=== PATIENT | female | born 1950 | race Caucasian/White ===

== ENCOUNTER 2022-06-12 18:32 | Emergency (ER) | payer MEDICARE ==
[2022-06-12] MEDS ORDERED: ONDANSETRON 4 MG/2 ML INJ IV ONE (19:05)
[2022-06-12] MEDS ORDERED: MORPHINE 4 MG/1 ML INJ IV ONE (19:05)
--- NOTE | 2022-06-12 19:05 | Emergency Department Report ---
ED General Adult HPI - General Chief complaint: Pain General Stated complaint: Leave me alone Time Seen by Provider: 06/12/22 18:51 Source: patient, EMS (Verbal report received from emergency medical services. EMS documentation not available at time of chart dictation ), RN notes reviewed Mode of arrival: Stretcher Limitations: Altered Mental Status, Physical Limitation - History of Present Illness Initial comments: The patient was evaluated in the emergency department for symptoms described in the history of present illness. He/she was evaluated in the context of the global COVID-19 pandemic, which necessitated consideration that the patient mi ght be at risk for infection with the virus that causes COVID-19. Institutional protocols and algorithms that pertain to the evaluation of patients at risk for COVID-19 are in a state of rapid change based on information released by regulatory bodies including the CDC and federal and state organizations. These policies and algorithms were followed during the patient's care in the emergency department. Please note that these policies, procedures and recommendations changed on a rapid basis. This is a 71-year-old female. Her primary care doctor is Dr. Becerra. Past medical history includes hypertension, dementia, and high cholesterol. She may also have underlying psychiatric disease. The patient presents to the department today with emergency medical services. The patient is awake, but chronically confused, demented and a poor historian. History obtained entirely from EMS. As per EMS, they were contacted by the patient's halfway or personal mcc, because of a concern that the patient might be having left leg pain. It is unknown if there is any trauma. The patient herself does grimace when her left leg is touched at the left proximal femur and humerus. The patient states leave me alone. The patient otherwise is not able to describe the qualitative nature of symptoms, exacerbating factors relieving factors or aggravating factors. The patient is not currently accompanied by friends or family at this time for collateral information or additional information. No additional history is available at this time. EMS reports unremarkable vital signs in the field, the patient is moving 4 extremities, although, they report that the left lower extremity appears to be shortened and externally rotated. They do report that the patient was found in a bed. Called up phone number ) for [facility], nobody answered the phone. Left voicemail for call back [place] [facility] -: unknown Location: left, lower extremity - Related Data Allergies Allergy/AdvReac Type Severity Reaction Status Date / Time No Known Allergies Allergy Verified 06/12/22 18:39 ED Review of Systems ROS: Stated complaint: L KNEE PAIN Other details as noted in HPI Comment: Unobtainable due to pts medical conditions Musculoskeletal: as per HPI Neurological: confusion ED Physical Exam - General Limitations: Altered Mental Status, Other (Dementia, agitation and poor historian) General appearance: alert, anxious - Head Head exam: Present: atraumatic, normocephalic - Eye Eye exam: Present: normal appearance, EOMI - ENT ENT exam: Present: normal orophraynx, mucous membranes dry, normal external ear exam - Neck Neck exam: Present: normal inspection, full ROM. Absent: tenderness, meningismus - Respiratory Respiratory exam: Present: rhonchi. Absent: respiratory distress, wheezes, rales, stridor, decreased breath sounds - Cardiovascular Cardiovascular Exam: Present: regular rate, normal rhythm, normal heart sounds. Absent: bradycardia, tachycardia, irregular rhythm, systolic murmur, diastolic murmur, rubs, gallop - GI/Abdominal GI/Abdominal exam: Present: soft. Absent: distended, tenderness, guarding, rebound, rigid, pulsatile mass - Rectal Rectal exam: Present: normal inspection, other (Chaperoned by nurse Ramos) - External exam: Present: normal external exam, other (Chaperoned by nurse Rachel Hardy) - Extremities Exam Extremities exam: Present: full ROM (Bilateral upper extremities. Right lower extremity), tenderness (Point tenderness to the left proximal humerus and femur), other (2+ pulses noted in the bilateral upper and lower extremities. The upper extremities are nontender. The right lower extremity is nontender. The left hip and femur are tender proximally. Bilateral knees and ankles are nontender). Absent: normal inspection, calf tenderness - Back Exam Back exam: Present: normal inspection. Absent: tenderness, CVA tenderness (R), CVA tenderness (L), paraspinal tenderness, vertebral tenderness - Neurological Exam Neurological exam: Present: altered (The patient is awake. The patient moves 4 extremities. The patient is asking to be left alone. The patient is confused and demented. There is no obvious facial droop. The tongue is midline.), other (Sensation is intact to light touch in 4 extremities.) - Psychiatric Psychiatric exam: Present: anxious - Skin Skin exam: Present: warm, dry, intact, normal color. Absent: rash ED Course Vital Signs 06/12/22 06/12/22 06/12/22 18:33 19:10 20:20 Temperature 99.0 F Pulse Rate 80 86 84 Respiratory 18 18 18 Rate Blood Pressure 136/68 95/68 135/76 [Left] O2 Sat by Pulse 98 96 96 Oximetry 06/12/22 06/13/22 23:37 01:30 Temperature 97.0 F L Pulse Rate 80 88 Respiratory 16 15 Rate Blood Pressure 147/58 115/72 [Left] O2 Sat by Pulse 95 97 Oximetry - Reevaluation(s) Reevaluation #1: 06/12/22 19:17 Differential diagnosis, including not limited to: Fracture, dislocation Assessment and plan: 71-year-old female with left leg tenderness, indication of pain, leg appears to be shortened and rotated. Very suspicious for fracture/dislocation. Low-grade temperature. Obtain appropriate laboratory studies and x-ray. Given concern for fracture and/or dislocation, be uncertain mechanism, obtain CT scan brain, cervical spine, and pelvis. Administer pain medication, head of bed elevation, n.p.o., aspiration precau tions. Reassess. Reevaluation #2: 06/12/22 19:51 called up daughter harshil edgar; no answer, left voicemail for call back. Phone #[phone] 06/12/22 20:18 No callback from [place]. Daughter Hanna Edgar has called back. We do not know how the patient broke her leg. Her daughter indicates that the patient is typically ambulatory. We do not have orthopedics on-call for the emergency room for the hospital. Given that patient is ambulatory with a proximal left-sided femoral fracture, have recommended transfer to a facility with orthopedics available for consultation and intervention. Daughter articulates understanding, and is in agreement with this recommendation. 06/12/22 20:26 History, physical, imaging studies are presented to trauma surgeon at [place], Dr. Magallanes. This patient has an emergent traumatic condition which cannot be definitively managed at this hospital, as we do not have trauma surgery orthopedics available for consultation/intervention. Patient hemodynamically stable, protecting airway, and suitable for definitive transfer at this time He will accept the patient as an ER to ER transfer. Daughter is updated She articulates understanding, and is agreeable to this plan of care Of note, [facility]eta Torrez has called back. They indicated that the patient is ambulatory yesterday. They further indicates that the patient was found to have left leg pain today, but it is uncertain how she sustained the fracture. 06/12/22 20:30 ED Medical Decision Making - Lab Data Result diagrams: 06/12/22 20:27 06/12/22 20:27 Vital Signs 06/12/22 18:33 Pulse Rate 80 Respiratory 18 Rate Blood Pressure 136/68 [Left] O2 Sat by Pulse 98 Oximetry Rectal temperature 99 degrees Lab Results 06/12/22 06/12/22 06/12/22 Range/Units 20:27 20:27 20:27 WBC 13.3 H (4.5-11.0) K/mm3 RBC 4.67 (3.65-5.03) M/mm3 Hgb 13.8 (10.1-14.3) gm/dl Hct 42.7 (30.3-42.9) % MCV 92 (79-97) fl MCH 30 (28-32) pg MCHC 32 (30-34) % RDW 13.2 (13.2-15.2) % Plt Count 208 (140-440) K/mm3 PT 16.0 H (12.2-14.9) Sec. INR 1.15 H (0.87-1.13) Sodium 137 (137-145) mmol/L Potassium 4.3 (3.6-5.0) mmol/L Chloride 100.4 (98-107) mmol/L Carbon Dioxide 23 (22-30) mmol/L Anion Gap 18 mmol/L BUN 14 (7-17) mg/dL Creatinine 0.9 (0.6-1.2) mg/dL Estimated GFR > 60 ml/min BUN/Creatinine Ratio 16 % Glucose 275 H (65-100) mg/dL Calcium 9.3 (8.4-10.2) mg/dL Magnesium 1.80 (1.7-2.3) mg/dL Total Bilirubin 0.50 (0.1-1.2) mg/dL AST 18 (5-40) units/L ALT 12 (7-56) units/L Alkaline Phosphatase 88 (35-129) units/L Total Creatine Kinase 86 (30-135) units/L Troponin T < 0.010 (0.00-0.029) ng/mL Total Protein 7.4 (6.3-8.2) g/dL Albumin 4.0 (3.9-5) g/dL Albumin/Globulin Ratio 1.2 % Urine Color (Yellow) Urine Turbidity (Clear) Urine pH (5.0-7.0) Ur Specific [place] (1.003-1.030) Urine Protein (Negative) mg/dL Urine Glucose (UA) (Negative) mg/dL Urine Ketones (Negative) mg/dL Urine Blood (Negative) Urine Nitrite (Negative) Ur Reducing Substances Urine Bilirubin (Negative) Urine Ictotest Urine Urobilinogen (<2.0) mg/dL Ur Leukocyte Esterase (Negative) Urine WBC (Auto) (0.0-6.0) /HPF Urine RBC (Auto) (0.0-6.0) /HPF U Epithel Cells (Auto) (0-13.0) /HPF Urine Bacteria (Auto) (Negative) /HPF 06/12/22 Range/Units 21:01 WBC (4.5-11.0) K/mm3 RBC (3.65-5.03) M/mm3 Hgb (10.1-14.3) gm/dl Hct (30.3-42.9) % MCV (79-97) fl MCH (28-32) pg MCHC (30-34) % RDW (13.2-15.2) % Plt Count (140-440) K/mm3 PT (12.2-14.9) Sec. INR (0.87-1.13) Sodium (137-145) mmol/L Potassium (3.6-5.0) mmol/L Chloride (98-107) mmol/L Carbon Dioxide (22-30) mmol/L Anion Gap mmol/L BUN (7-17) mg/dL Creatinine (0.6-1.2) mg/dL Estimated GFR ml/min BUN/Creatinine Ratio % Glucose (65-100) mg/dL Calcium (8.4-10.2) mg/dL Magnesium (1.7-2.3) mg/dL Total Bilirubin (0.1-1.2) mg/dL AST (5-40) units/L ALT (7-56) units/L Alkaline Phosphatase (35-129) units/L Total Creatine Kinase (30-135) units/L Troponin T (0.00-0.029) ng/mL Total Protein (6.3-8.2) g/dL Albumin (3.9-5) g/dL Albumin/Globulin Ratio % Urine Color Yellow (Yellow) Urine Turbidity Clear (Clear) Urine pH 5.0 (5.0-7.0) Ur Specific [place] 1.005 (1.003-1.030) Urine Protein <15 mg/dl (Negative) mg/dL Urine Glucose (UA) 1000 (Negative) mg/dL Urine Ketones Negative (Negative) mg/dL Urine Blood Small A (Negative) Urine Nitrite Negative (Negative) Ur Reducing Substances Not Reportable Urine Bilirubin Negative (Negative) Urine Ictotest Not Reportable Urine Urobilinogen < 2.0 (<2.0) mg/dL Ur Leukocyte Esterase Negative (Negative) Urine WBC (Auto) 1.0 (0.0-6.0) /HPF Urine RBC (Auto) 2.0 (0.0-6.0) /HPF U Epithel Cells (Auto) 1.0 (0-13.0) /HPF Urine Bacteria (Auto) 1+ (Negative) /HPF - Radiology Data Radiology results: pending, report reviewed, image reviewed CT CERVICAL SPINE WITHOUT CONTRAST INDICATION: Left femur fracture, uncertain if fall. Dementia. TECHNIQUE: Axial CT images of the spine were obtained. Sagittal and coronal reformatted images were produced. All CT scans at this location are performed using CT dose reduction for ALARA by means of automated exposure control. COMPARISON: None available. FINDINGS: ACUTE FRACTURE(S) OR SUBLUXATION: None. SPINAL DEGENERATIVE CHANGES: Mild degenerative disc disease at C4-5 and C5-6. No appreciable significant spinal canal stenosis. PARASPINAL SOFT TISSUES: No soft tissue swelling or other acute abnormalities. ADDITIONAL FINDINGS: No significant additional findings. IMPRESSION: 1. No acute fracture or subluxation in the spine in neutral position. Signer Name: Alexey Michaud MD Signed: 06/12/2022 7:16 PM Workstation Name: [id number] CT head/brain wo con INDICATION: Left femur fracture, uncertain if fall. Dementia. TECHNIQUE: Routine CT head without contrast. All CT scans at this location are performed using CT dose reduction for ALARA by means of automated exposure control. COMPARISON: None. FINDINGS: BRAIN / INTRACRANIAL CONTENTS: No acute hemorrhage, brain edema, mass effect, or hydrocephalus. Normal durant- white differentiation. No chronic infarct. Age-commensurate ventricular and cisternal/sulcal prominence. CALVARIUM/SKULL BASE/CRANIOCERVICAL JUNCTION: No evidence of fracture. ORBITS: No significant abnormality of visualized orbits. SINUSES / MASTOIDS: No significant abnormality of visualized sinuses and mastoid air cells. ADDITIONAL FINDINGS: None. IMPRESSION: 1. No acute post-traumatic intracranial abnormality. Signer Name: Alexey Michaud MD Signed: 06/12/2022 7:16 PM Workstation Name: [id number] [address] [address] XRay Report Signed Patient: KATHY HENDRICKS MR#: [id number] : 1950 Acct:[id number] Age/Sex: 71 / F ADM Date: 06/12/22 Loc: ED Attending Dr: Ordering Physician: DARRIUS HOPKINS MD Date of Service: 06/12/22 Procedure(s): XR pelvis 1-2V Accession Number(s): [id number] cc: DARRIUS HOPKINS MD Fluoro Time In Minutes: PELVIS 1 VIEW(S) INDICATION / CLINICAL INFORMATION: Left hip pain COMPARISON: None available. FINDINGS: BONES / JOINT(S): Acute moderately displaced intertrochanteric fracture left proximal femur. Mild DJD the bilateral hips. SOFT TISSUES: No significant abnormality. ADDITIONAL FINDINGS: None. Signer Name: Da Brooks DO Signed: 06/12/2022 7:41 PM Workstation Name: [id number] Transcribed By: NS Dictated By: DA BROOKS DO Electronically Authenticated By: DA BROOKS DO Signed Date/Time: 06/12/221940 DD/ 40 TD/TT: [address] [address] XRay Report Signed Patient: KATHY HENDRICKS MR#: [id number] : 1950 Acct:[id number] Age/Sex: 71 / F ADM Date: 06/12/22 Loc: ED Attending Dr: Ordering Physician: DARRIUS HOPKINS MD Date of Service: 06/12/22 Procedure(s): XR chest 1V ap Accession Number(s): [id number] cc: DARRIUS HOKPINS MD Fluoro Time In Minutes: CHEST 1 VIEW 06/12/2022 6:40 PM INDICATION / CLINICAL INFORMATION: Dementia and rhonchi. COMPARISON: None available. FINDINGS: SUPPORT DEVICES: None. HEART / MEDIASTINUM: No significant abnormality. LUNGS / PLEURA: No significant pulmonary or pleural abnormality. No pneumothorax. ADDITIONAL FINDINGS: No significant additional findings. IMPRESSION: 1. No acute findings. Signer Name: Da Brooks DO Signed: 06/12/2022 7:43 PM Workstation Name: [id number] Transcribed By: BOB Dictated By: DA BROOKS DO Electronically Authenticated By: DA BROOKS DO Signed Date/Time: 06/12/221942 [facility] [address] [place] [address] XRay Report Signed Patient: KATHY HENDRICKS MR#: [id number] : 1950 Acct:[id number] Age/Sex: 71 / F ADM Date: 06/12/22 Loc: ED Attending Dr: Ordering Physician: DARRIUS HOPKINS MD Date of Service: 06/12/22 Procedure(s): XR femur 2+V LT Accession Number(s): [id number] cc: DARRIUS HOPKINS MD Fluoro Time In Minutes: LEFT FEMUR 2 VIEW(S) INDICATION / CLINICAL INFORMATION: Left leg pain COMPARISON: Pelvic radiograph from earlier in the day FINDINGS: BONES / JOINT(S): Acute moderately displaced intertrochanteric fracture of the proximal left femur. Mild DJD of the left hip and mild DJD of the left knee. SOFT TISSUES: No significant abnormality. ADDITIONAL FINDINGS: None. Signer Name: Da Brooks DO Signed: 06/12/2022 7:45 PM Workstation Name: [id number] Transcribed By: BOB Dictated By: DA BROOKS DO Electronically Authenticated By: DA BROOKS DO Signed Date/Time: 06/12/221944 DD/ 44 TD/TT: DD/ 42 TD/TT: [facility] [address] [place] [id number] Cat Scan Report Signed Patient: KATHY HENDRICKS MR#: [id number] : 1950 Acct:[id number] Age/Sex: 71 / F ADM Date: 06/12/22 Loc: ED Attending Dr: Ordering Physician: DARRIUS HOPKINS MD Date of Service: 06/12/22 Procedure(s): CT pelvis wo con Accession Number(s): [id number] cc: DARRIUS HOPKINS MD CT PELVIS WITHOUT CONTRAST INDICATION / CLINICAL INFORMATION: Left hip, and proximal femur pain. TECHNIQUE: Axial CT images were obtained through the pelvis without contrast. All CT scans at this location are performed using CT dose reduction for ALARA by means of automated exposure control. COMPARISON: None available. FINDINGS: BONES: Acute moderately displaced comminuted intertrochanteric fracture of the left proximal femur. No osseous lesion. HIP JOINTS: There is moderate right and mild left DJD of the femoral acetabular joints. SACROILIAC JOINTS: No significant abnormality. SOFT TISSUES: No significant abnormality. LOWER LUMBAR SPINE: No significant abnormality. SOFT TISSUES WITHIN PELVIS: No acute findings. ADDITIONAL FINDINGS: None. IMPRESSION: 1. Acute moderately displaced comminuted intertrochanteric fracture of the left proximal femur. 2. 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 ED Disposition Clinical Impression: Left leg pain, Dementia, Fracture, intertrochanteric, left femur Disposition: 02 SHORT TERM HOSPITAL Is pt being admited?: Yes Does the pt Need Aspirin: No Condition: Good Referrals: CAYETANO PIZANO MD [Primary Care Provider] - 3-5 Days
--- NOTE | 2022-06-12 19:45 | XRay Report ---
PELVIS 1 VIEW(S) INDICATION / CLINICAL INFORMATION: Left hip pain COMPARISON: None available. FINDINGS: BONES / JOINT(S): Acute moderately displaced intertrochanteric fracture left proximal femur. Mild DJD the bilateral hips. SOFT TISSUES: No significant abnormality. ADDITIONAL FINDINGS: None. Signer Name: Da Downey DO Signed: 06/12/2022 7:41 PM Workstation Name: [id number]
--- NOTE | 2022-06-12 19:48 | XRay Report ---
CHEST 1 VIEW 06/12/2022 6:40 PM INDICATION / CLINICAL INFORMATION: Dementia and rhonchi. COMPARISON: None available. FINDINGS: SUPPORT DEVICES: None. HEART / MEDIASTINUM: No significant abnormality. LUNGS / PLEURA: No significant pulmonary or pleural abnormality. No pneumothorax. ADDITIONAL FINDINGS: No significant additional findings. IMPRESSION: 1. No acute findings. Signer Name: Da Downey DO Signed: 06/12/2022 7:43 PM Workstation Name: [id number]
--- NOTE | 2022-06-12 19:50 | XRay Report ---
LEFT FEMUR 2 VIEW(S) INDICATION / CLINICAL INFORMATION: Left leg pain COMPARISON: Pelvic radiograph from earlier in the day FINDINGS: BONES / JOINT(S): Acute moderately displaced intertrochanteric fracture of the proximal left femur. M ild DJD of the left hip and mild DJD of the left knee. SOFT TISSUES: No significant abnormality. ADDITIONAL FINDINGS: None. Signer Name: Da Downey DO Signed: 06/12/2022 7:45 PM Workstation Name: [id number]
[2022-06-12] MEDS ORDERED: SODIUM CHLORIDE 0.9% 1000 ML 1,000 ML IV ONE (20:20)
--- NOTE | 2022-06-12 20:21 | Cat Scan Report ---
CT CERVICAL SPINE WITHOUT CONTRAST INDICATION: Left femur fracture, uncertain if fall. Dementia. TECHNIQUE: Axial CT images of the spine were obtained. Sagittal and coronal reformatted images were produced. Al l CT scans at this location are performed using CT dose reduction for ALARA by means of automated exp osure control. COMPARISON: None available. FINDINGS: ACUTE FRACTURE(S) OR SUBLUXATION: None. SPINAL DEGENERATIVE CHANGES: Mild degenerative disc disease at C4-5 and C5-6. No appreciable signific ant spinal canal stenosis. PARASPINAL SOFT TISSUES: No soft tissue swelling or other acute abnormalities. ADDITIONAL FINDINGS: No significant additional findings. IMPRESSION: 1. No acute fracture or subluxation in the spine in neutral position. Signer Name: Alexey Michaud MD Signed: 06/12/2022 8:16 PM Workstation Name: [id number]
--- NOTE | 2022-06-12 20:21 | Cat Scan Report ---
CT head/brain wo con INDICATION: Left femur fracture, uncertain if fall. Dementia. TECHNIQUE: Routine CT head without contrast. All CT scans at this location are performed using CT dose reduction for ALARA by means of automated exposure control. COMPARISON: None. FINDINGS: BRAIN / INTRACRANIAL CONTENTS: No acute hemorrhage, brain edema, mass effect, or hydrocephalus. Nancy l durant-white differentiation. No chronic infarct. Age-commensurate ventricular and cisternal/sulcal p rominence. CALVARIUM/SKULL BASE/CRANIOCERVICAL JUNCTION: No evidence of fracture. ORBITS: No significant abnormality of visualized orbits. SINUSES / MASTOIDS: No significant abnormality of visualized sinuses and mastoid air cells. ADDITIONAL FINDINGS: None. IMPRESSION: 1. No acute post-traumatic intracranial abnormality. Signer Name: Alexey Michaud MD Signed: 06/12/2022 8:16 PM Workstation Name: [id number]
[2022-06-12 20:34] LABS: Hematocrit 42.7 % (30.3-42.9); Hemoglobin 13.8 gm/dl (10.1-14.3); Mean Corpuscular HGB Conc 32 % (30-34); Mean Corpuscular Volume 92 fl (79-97); Platelet Count 208 K/mm3 (140-440); Red Blood Count 4.67 M/mm3 (3.65-5.03); Red Cell Distribution Width 13.2 % (13.2-15.2)
--- NOTE | 2022-06-12 20:36 | Cat Scan Report ---
CT PELVIS WITHOUT CONTRAST INDICATION / CLINICAL INFORMATION: Left hip, and proximal femur pain. TECHNIQUE: Axial CT images were obtained through the pelvis without contrast. All CT scans at this [facility] are performed using CT dose reduction for ALARA by means of automated exposure control. COMPARISON: None available. FINDINGS: BONES: Acute moderately displaced comminuted intertrochanteric fracture of the left proximal femur. N o osseous lesion. HIP JOINTS: There is moderate right and mild left DJD of the femoral acetabular joints. SACROILIAC JOINTS: No significant abnormality. SOFT TISSUES: No significant abnormality. LOWER LUMBAR SPINE: No significant abnormality. SOFT TISSUES WITHIN PELVIS: No acute findings. ADDITIONAL FINDINGS: None. IMPRESSION: 1. Acute moderately displaced comminuted intertrochanteric fracture of the left proximal femur. 2. 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
[2022-06-12 20:58] LABS: INR 1.15 (0.87-1.13)
[2022-06-12 21:01] LABS: Alanine Aminotransferase 12 units/L (7-56); BUN/Creatinine Ratio 16; Blood Urea Nitrogen 14 mg/dL (7-17); Calcium 9.3 mg/dL (8.4-10.2); Hemolysis Index 20
[2022-06-12 21:15] LABS: Bacteria,Urine 1+ /HPF (Negative)
[2022-06-12 21:36] LABS: Bilirubin,Urine Negative (Negative); Blood,Urine Small (Negative); Color,Urine Yellow (Yellow); Protein,Urine <15 mg/dL mg/dL (Negative); Urobilinogen,Urine < 2.0 mg/dL (<2.0)
[2022-06-13 02:49] VITALS: BP 115/72
--- NOTE | 2022-06-13 09:09 | Electrocardiograph Report ---
[facility] Test Date: 2022-06-12 Test Time: 20:49:40 Pat Name: KATHY HENDRICKS Department: Room: Gender: F Newspaper Delivery Driver: : 1950 Requested By: DARRIUS HOPKINS Order Number: [id number] Reading MD: Andres Kaminski Measurements Intervals [place] Rate: 86 P: IA: QRS: 84 QRSD: 86 T: 63 QT: 363 QTc: 434 Interpretive Statements NSR nonspecific st-t No previous ECG available for comparison Electronically Signed On 06-13-2022 9:08:59 EDT by Andres Kaminski
== END 2022-06-13 01:35 | disposition short-term general hospital (02) ==
LOC: ED 18:32
DX: S72.142A Displaced intertrochanteric fracture of left femur, initial encounter for closed fracture (principal); M79.605 Pain in left leg; F03.90 Unspecified dementia, unspecified severity, without behavioral disturbance, psychotic disturbance, mood disturbance, and anxiety; X58.XXXA Exposure to other specified factors, initial encounter; Y93.89 Activity, other specified; Y92.89 Other specified places as the place of occurrence of the external cause; Y99.8 Other external cause status
CPT/HCPCS: 36415; 70450; 71045; 72125; 72170; 72192; 73552; 80053; 81001; 82550; 83735; 84484; 85027; 85610; 93005; 96361; 96374; 96375; 99285; J2270; J2405; J7030